=== PATIENT | male | born 1985 | race American Indian/Alaskan Native ===

== ENCOUNTER 2017-07-01 09:47 | Emergency (ER) | payer SELFPAY ==
[2017-07-01] MEDS ORDERED: TRIPLE ANTIBIOTIC TP ONE (16:38)
--- NOTE | 2017-07-01 16:53 | Emergency Department Report ---
- General Chief complaint: Skin/Abscess/Foreign Body Stated complaint: INFECTED WOUND ON FACE Source: patient Mode of arrival: Ambulatory Limitations: No Limitations - History of Present Illness Initial comments: 32 y/o M presents with a small open wound noted on the right side of the face near the masseter that developed about 1.5 weeks ago. Pt states that he has a hx of staph infections and was diagnosed in 2014 at [facility]. Pt states that since then he has gotten such infection yearly. He states that bactrim usually resolves the issue. Pt states that he has noticed mild oozing and pus at the site yesterday. Pt reports to mild pain at the site. He has been apply neosporin to the site with no improvement of the symptoms. Pt denies any fever , chills, chest pain, SOB at this time. NKDA. ALCAZAR complaint: lesion (small earser sized open wound) -: week(s) (1.5 weeks) Tetanus Up to Date: yes Location: face Severity: moderate Severity scale (0 -10): 4 Quality: other (tingling) Consistency: constant Improves with: none - Related Data Previous Rx's Medication Instructions Recorded Last Taken Type Ibuprofen [Motrin] 600 mg PO Q8H PRN #15 tablet 04/05/16 Unknown Rx Sulfamethoxazole/Trimethoprim 1 each PO BID #20 tablet 05/22/16 Unknown Rx [Bactrim DS TAB] Ibuprofen [Motrin 600 MG tab] 600 mg PO Q8H PRN #12 tablet 07/01/17 Unknown Rx Mupirocin [Bactroban 2%] 1 applic TP TID #1 tube 07/01/17 Unknown Rx Sulfamethoxazole/Trimethoprim 1 each PO BID #20 tablet 07/01/17 Unknown Rx [Bactrim DS TAB] Allergies Allergy/AdvReac Type Severity Reaction Status Date / Time No Known Allergies Allergy Verified 07/01/17 10:02 Abscess Boil HPI - HPI Chief Complaint: Skin/Abscess/Foreign Body Stated Complaint: INFECTED WOUND ON FACE Location: Other (face) Severity: Moderate History: Yes Pain, Yes Purulent Drainage, Yes Previous History, No Fever, No Numbness, No Foreign Body, No Insect Bite Home Medications: Previous Rx's Medication Instructions Recorded Last Taken Type Ibuprofen [Motrin] 600 mg PO Q8H PRN #15 tablet 04/05/16 Unknown Rx Sulfamethoxazole/Trimethoprim 1 each PO BID #20 tablet 05/22/16 Unknown Rx [Bactrim DS TAB] Ibuprofen [Motrin 600 MG tab] 600 mg PO Q8H PRN #12 tablet 07/01/17 Unknown Rx Mupirocin [Bactroban 2%] 1 applic TP TID #1 tube 07/01/17 Unknown Rx Sulfamethoxazole/Trimethoprim 1 each PO BID #20 tablet 07/01/17 Unknown Rx [Bactrim DS TAB] Allergies/Adverse Reactions: Allergies Allergy/AdvReac Type Severity Reaction Status Date / Time No Known Allergies Allergy Verified 07/01/17 10:02 ED Review of Systems ROS: Stated complaint: INFECTED WOUND ON FACE Other details as noted in HPI Constitutional: denies: chills, fever Eyes: denies: eye pain, eye discharge, vision change ENT: denies: ear pain, throat pain Respiratory: denies: cough, shortness of breath, wheezing Cardiovascular: denies: chest pain, palpitations Gastrointestinal: denies: abdominal pain, nausea, diarrhea Genitourinary: denies: urgency, dysuria Musculoskeletal: denies: back pain, joint swelling, arthralgia Skin: lesions (with mild pus and drainage per patient) Neurological: denies: headache, weakness, paresthesias Psychiatric: denies: anxiety, depression ED Past Medical Hx - Past Medical History Previous Medical History?: No - Surgical History Past Surgical History?: No - Social History Smoking Status: Current Every Day Smoker Substance Use Type: None - Medications Home Medications: Home Medications Medication Instructions Recorded Confirmed Last Taken Type Ibuprofen [Motrin] 600 mg PO Q8H PRN #15 tablet 04/05/16 Unknown Rx Sulfamethoxazole/Trimethoprim 1 each PO BID #20 tablet 05/22/16 Unknown Rx [Bactrim DS TAB] Ibuprofen [Motrin 600 MG tab] 600 mg PO Q8H PRN #12 tablet 07/01/17 Unknown Rx Mupirocin [Bactroban 2%] 1 applic TP TID #1 tube 07/01/17 Unknown Rx Sulfamethoxazole/Trimethoprim 1 each PO BID #20 tablet 07/01/17 Unknown Rx [Bactrim DS TAB] ED Physical Exam - General Limitations: No Limitations General appearance: alert, in no apparent distress - Head Head exam: Present: atraumatic, normocephalic - Eye Eye exam: Present: normal appearance - ENT ENT exam: Present: mucous membranes moist - Neck Neck exam: Present: normal inspection - Respiratory Respiratory exam: Present: normal lung sounds bilaterally. Absent: respiratory distress - Cardiovascular Cardiovascular Exam: Present: regular rate, normal rhythm. Absent: systolic murmur, diastolic murmur, rubs, gallop - Neurological Exam Neurological exam: Present: alert, oriented X3 - Psychiatric Psychiatric exam: Present: normal affect, normal mood - Skin Skin exam: Present: other (there was a small size of a pencil eraser open lesion noted on the right side of the face near the masseter, there was no oozing pus or drianage noted at the site, no redness or swelling noted) ED Course Vital Signs 07/01/17 07/01/17 09:58 17:03 Temperature 98.1 F Pulse Rate 74 68 Respiratory 16 16 Rate Blood Pressure 101/57 Blood Pressure 127/80 [Right] O2 Sat by Pulse 99 100 Oximetry ED Medical Decision Making - Medical Decision Making Pt has a hx of staph infection per patient, he states that he was first dx at [facility] in 2014. I have recommended a wound culture in the ED at this time, pt has refused due to financial reasons. Therefore, we cleaned the area and applied triple antibiotic to the site, along with a bandaid. Pt was discharged with Bactrim, Bactroban, and Ibuprofen. He was given referals to a shoe fitter, ID, and PCP. Encouraged to follow-up with them for continued infections of the same sort. Pt was discharged in stable condition, alert and oriented, and in no respiratory distress. Critical care attestation.: If time is entered above; I have spent that time in minutes in the direct care of this critically ill patient, excluding procedure time. ED Disposition Clinical Impression: Open wound Open wound of face Qualifiers: Encounter type: initial encounter Qualified Code(s): S01.80XA - Unspecified open wound of other part of head, initial encounter Disposition: TO HOME OR SELFCARE Is pt being admited?: No Does the pt Need Aspirin: No Condition: Stable Instructions: Sulfamethoxazole/Trimethoprim (By mouth), Ibuprofen (By mouth), Wound Infection (ED) Additional Instructions: Please take the antibiotic exactly how it has been directed . Please take the Ibuprofen as needed for the pain. I encouraged you to follow-up with Infectious disease or Dermatology for recurrent sores of this type. Referrals provided for you today. Please follow-up with PCP with 3-5 days. Clean the area 3 times a day with mild soap and water and apply the antibiotic ointment to the sore. Please return to the ER immediately with any acute worsening of your symptoms- such as fever, chills, oozing, pus, redness, swelling, or drainage at the site. Prescriptions: Ibuprofen [Motrin 600 MG tab] 600 mg PO Q8H PRN #12 tablet PRN Reason: Pain Mupirocin [Bactroban 2%] 1 applic TP TID #1 tube Sulfamethoxazole/Trimethoprim [Bactrim DS TAB] 1 each PO BID #20 tablet Referrals: [facility] [Outside] - 3-5 Days REBECCA BERNAL MD [Staff Physician] - 3-5 Days PRIMARY CAREMD [Primary Care Provider] - 3-5 Days JOAQUIN STAUFFER MD [Staff Physician] - 3-5 Days Forms: Work/School Release Form(ED)
[2017-07-01 17:04] VITALS: BP 127/80
== END 2017-07-01 17:03 | disposition home or self-care (01) ==
LOC: ED 09:47
DX: S01.80XA Unspecified open wound of other part of head, initial encounter (principal); F17.210 Nicotine dependence, cigarettes, uncomplicated; X58.XXXA Exposure to other specified factors, initial encounter; Y93.89 Activity, other specified; Y92.89 Other specified places as the place of occurrence of the external cause; Y99.8 Other external cause status
CPT/HCPCS: 99282; A6250

== ENCOUNTER 2017-11-08 14:23 | Emergency (ER) | payer SELFPAY ==
[2017-11-08 15:47] VITALS: BP 104/55
[2017-11-08] MEDS ORDERED: BOOSTRIX IM ONE (18:15)
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
== END 2017-11-08 18:25 | disposition home or self-care (01) ==
LOC: ED 14:23
DX: S01.451A Open bite of right cheek and temporomandibular area, initial encounter (principal); S61.256A Open bite of right little finger without damage to nail, initial encounter; F17.200 Nicotine dependence, unspecified, uncomplicated; F12.10 Cannabis abuse, uncomplicated; W50.3XXA Accidental bite by another person, initial encounter; Y93.89 Activity, other specified; Y92.89 Other specified places as the place of occurrence of the external cause; Y99.8 Other external cause status
CPT/HCPCS: 90471; 90715; 99282

== ENCOUNTER 2020-05-29 07:43 | Emergency (ER) | payer SELFPAY ==
[2020-05-29 07:49] VITALS: BP 120/72
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
== END 2020-05-29 09:11 | disposition home or self-care (01) ==
LOC: ED 07:43
DX: T14.8XXA Other injury of unspecified body region, initial encounter (principal); F17.200 Nicotine dependence, unspecified, uncomplicated; F12.90 Cannabis use, unspecified, uncomplicated; Z79.899 Other long term (current) drug therapy; Z98.890 Other specified postprocedural states; Y92.89 Other specified places as the place of occurrence of the external cause; Y83.8 Other surgical procedures as the cause of abnormal reaction of the patient, or of later complication, without mention of misadventure at the time of the procedure
CPT/HCPCS: 99282

== ENCOUNTER 2020-12-18 11:13 | Emergency (ER) | payer SELFPAY ==
--- NOTE | 2020-12-18 12:06 | Emergency Department Report ---
ED General Adult HPI - General Stated complaint: RT WRIST WOUND/L HAND WOUND Time Seen by Provider: 12/18/20 12:05 - History of Present Illness Initial comments: 35-year-old -[place] male patient presents with complaints of painful sore to right forearm and left hand. He states the lesion on his right forearm has been present for about 1 month and is suddenly worsening over the past few days. The lesions on his left hand have been present for about 2 weeks. Patient reports history of recurrent sores on his arms bilaterally for years. He states he has been following with his PCP for evaluation of the sores, however they are unsure of the causation. He denies any fever/chills/sweats or bony pain. No other past medical history per patient. - Related Data Previous Rx's Medication Instructions Recorded Last Taken Type Ibuprofen [Motrin] 600 mg PO Q8H PRN #15 tablet 04/05/16 Unknown Rx Sulfamethoxazole/Trimethoprim 1 each PO BID #20 tablet 05/22/16 Unknown Rx [Bactrim DS TAB] Ibuprofen [Motrin 600 MG tab] 600 mg PO Q8H PRN #12 tablet 07/01/17 Unknown Rx Mupirocin [Bactroban 2%] 1 applic TP TID #1 tube 07/01/17 Unknown Rx Sulfamethoxazole/Trimethoprim 1 each PO BID #20 tablet 07/01/17 Unknown Rx [Bactrim DS TAB] Amoxicillin/K Clav Tab [Augmentin 1 tab PO Q12HR #20 tab 11/08/17 Unknown Rx 875 mg] Ibuprofen [Motrin] 600 mg PO Q8H PRN #30 tablet 11/08/17 Unknown Rx Chlorhexidine Gluconate [Hibiclens] 10 ml TP BID #240 liquid 05/29/20 Unknown Rx Ketorolac [Toradol] 10 mg PO Q6H PRN #15 tablet 05/29/20 Unknown Rx Mupirocin [Bactroban 2%] 15 applic TP TID #15 gm 05/29/20 Unknown Rx Sulfamethoxazole/Trimethoprim 1 each PO BID #20 tablet 05/29/20 Unknown Rx [Bactrim Ds] Clindamycin [Clindamycin CAP] 300 mg PO Q6H 10 Days #40 capsule 12/18/20 Unknown Rx Ibuprofen [Motrin 800 MG tab] 800 mg PO Q8HR PRN #20 tablet 12/18/20 Unknown Rx Mupirocin [Bactroban 2% OINT] 1 applic TP TID 10 Days #1 tube 12/18/20 Unknown Rx Allergies Allergy/AdvReac Type Severity Reaction Status Date / Time No Known Allergies Allergy Verified 12/18/20 12:02 ED Review of Systems ROS: Stated complaint: RT WRIST WOUND/L HAND WOUND Other details as noted in HPI Constitutional: denies: chills, fever, malaise Musculoskeletal: denies: joint swelling, arthralgia Skin: rash, lesions, change in color Neurological: denies: numbness, paresthesias ED Past Medical Hx - Surgical History Additional Surgical History: Oral surgery - Social History Smoking Status: Current Every Day Smoker Substance Use Type: Alcohol, Marijuana - Medications Home Medications: Home Medications Medication Instructions Recorded Confirmed Last Taken Type Ibuprofen [Motrin] 600 mg PO Q8H PRN #15 tablet 04/05/16 Unknown Rx Sulfamethoxazole/Trimethoprim 1 each PO BID #20 tablet 05/22/16 Unknown Rx [Bactrim DS TAB] Ibuprofen [Motrin 600 MG tab] 600 mg PO Q8H PRN #12 tablet 07/01/17 Unknown Rx Mupirocin [Bactroban 2%] 1 applic TP TID #1 tube 07/01/17 Unknown Rx Sulfamethoxazole/Trimethoprim 1 each PO BID #20 tablet 07/01/17 Unknown Rx [Bactrim DS TAB] Amoxicillin/K Clav Tab [Augmentin 1 tab PO Q12HR #20 tab 11/08/17 Unknown Rx 875 mg] Ibuprofen [Motrin] 600 mg PO Q8H PRN #30 tablet 11/08/17 Unknown Rx Chlorhexidine Gluconate [Hibiclens] 10 ml TP BID #240 liquid 05/29/20 Unknown Rx Ketorolac [Toradol] 10 mg PO Q6H PRN #15 tablet 05/29/20 Unknown Rx Mupirocin [Bactroban 2%] 15 applic TP TID #15 gm 05/29/20 Unknown Rx Sulfamethoxazole/Trimethoprim 1 each PO BID #20 tablet 05/29/20 Unknown Rx [Bactrim Ds] Clindamycin [Clindamycin CAP] 300 mg PO Q6H 10 Days #40 capsule 12/18/20 Unknown Rx Ibuprofen [Motrin 800 MG tab] 800 mg PO Q8HR PRN #20 tablet 12/18/20 Unknown Rx Mupirocin [Bactroban 2% OINT] 1 applic TP TID 10 Days #1 tube 12/18/20 Unknown Rx ED Physical Exam - General General appearance: alert, in no apparent distress - Head Head exam: Present: atraumatic, normocephalic - Eye Eye exam: Present: normal appearance. Absent: scleral icterus - Respiratory Respiratory exam: Absent: respiratory distress - Cardiovascular Cardiovascular Exam: Present: regular rate - Neurological Exam Neurological exam: Present: normal gait - Psychiatric Psychiatric exam: Present: normal affect, normal mood - Skin Skin exam: Present: warm, dry, normal color, other (There is a approximately 3 cm round superficial ulceration noted to right forearm with surrounding erythema and tenderness to palpation; no active drainage noted; 2 small less than 1 cm round superficial ulcerations noted to the left dorsal palm without active drainage or surrounding erythema) ED Course Vital Signs 12/18/20 12:05 Temperature 98.0 F Pulse Rate 78 Respiratory 20 Rate Blood Pressure 97/58 O2 Sat by Pulse 99 Oximetry ED Medical Decision Making - Radiology Data Radiology results: report reviewed RIGHT FOREARM 3 VIEWS INDICATION: infection, r/o osteomyelitis. COMPARISON: No relevant prior imaging study available. FINDINGS: There is no significant skeletal abnormality. No soft tissue gas or foreign bodies. IMPRESSION: 1. No acute findings. - Medical Decision Making 35-year-old -[place] male patient presents with complaints of painful sore to right forearm and left hand. He states the lesion on his right forearm has been present for about 1 month and is suddenly worsening over the past few days. The lesions on his left hand have been present for about 2 weeks. Patient reports history of recurrent sores on his arms bilaterally for years. He states he has been following with his PCP for evaluation of the sores, however they are unsure of the causation. He denies any fever/chills/sweats or bony pain. No other past medical history per patient. Right forearm ulceration appears to be infected. X-rays negative for any osteomyelitis. Will treat with clindamycin and mupirocin. Recommend follow-up primary care provider for further evaluation in 2 days. His vitals are normal, he is well-appearing, he is stable for discharge home. Strict return precautions were discussed in detail with patient who verbalized understanding. Critical care attestation.: If time is entered above; I have spent that time in minutes in the direct care of this critically ill patient, excluding procedure time. ED Disposition Clinical Impression: Infected wound Disposition: DC-01 TO HOME OR SELFCARE Is pt being admited?: No Condition: Stable Instructions: Cellulitis, Adult Prescriptions: Mupirocin [Bactroban 2% OINT] 1 applic TP TID 10 Days #1 tube Clindamycin [Clindamycin CAP] 300 mg PO Q6H 10 Days #40 capsule Ibuprofen [Motrin 800 MG tab] 800 mg PO Q8HR PRN #20 tablet PRN Reason: pain
[2020-12-18 12:07] VITALS: BP 97/58
--- NOTE | 2020-12-18 13:05 | XRay Report ---
RIGHT FOREARM 3 VIEWS INDICATION: infection, r/o osteomyelitis. COMPARISON: No relevant prior imaging study available. FINDINGS: There is no significant skeletal abnormality. No soft tissue gas or foreign bodies. IMPRESSION: 1. No acute findings. Signer Name: Mihir Lin MD Signed: 12/18/2020 1:01 PM Workstation Name: [id number]
== END 2020-12-18 13:44 | disposition home or self-care (01) ==
LOC: ED 11:13
DX: T14.8XXA Other injury of unspecified body region, initial encounter (principal); F17.200 Nicotine dependence, unspecified, uncomplicated; F12.90 Cannabis use, unspecified, uncomplicated; Z79.899 Other long term (current) drug therapy; X58.XXXA Exposure to other specified factors, initial encounter

== ENCOUNTER 2021-12-13 12:53 | Emergency (ER) | payer SELFPAY ==
[2021-12-13 13:25] VITALS: BP 113/67
--- NOTE | 2021-12-13 14:11 | Emergency Department Report ---
- General Chief complaint: Skin/Abscess/Foreign Body Stated complaint: LIP INJURY Time Seen by Provider: 12/13/21 14:01 Source: patient Mode of arrival: Ambulatory Limitations: No Limitations - History of Present Illness Initial comments: 36-year-old black male with no past medical history presents to the emergency department for evaluation of abscess to left lip. He states that he cut his lip a few days ago while he was attempting to trim his ames, and since then, he has had increasing redness pain and noted purulent drainage from area yesterday. He denies fever. MD complaint: abscess/boil -: Gradual, days(s) (3-4) Location: face (Left lip) Severity scale (0 -10): 3 Quality: aching Consistency: constant Context: other Associated symptoms: denies other symptoms Treatments Prior to Arrival: none - Related Data Previous Rx's Medication Instructions Recorded Last Taken Type Ibuprofen [Motrin] 600 mg PO Q8H PRN #15 tablet 04/05/16 Unknown Rx Sulfamethoxazole/Trimethoprim 1 each PO BID #20 tablet 05/22/16 Unknown Rx [Bactrim DS TAB] Ibuprofen [Motrin 600 MG tab] 600 mg PO Q8H PRN #12 tablet 07/01/17 Unknown Rx Mupirocin [Bactroban 2%] 1 applic TP TID #1 tube 07/01/17 Unknown Rx Sulfamethoxazole/Trimethoprim 1 each PO BID #20 tablet 07/01/17 Unknown Rx [Bactrim DS TAB] Amoxicillin/K Clav Tab [Augmentin 1 tab PO Q12HR #20 tab 11/08/17 Unknown Rx 875 mg] Ibuprofen [Motrin] 600 mg PO Q8H PRN #30 tablet 11/08/17 Unknown Rx Chlorhexidine Gluconate [Hibiclens] 10 ml TP BID #240 liquid 05/29/20 Unknown Rx Ketorolac [Toradol] 10 mg PO Q6H PRN #15 tablet 05/29/20 Unknown Rx Mupirocin [Bactroban 2%] 15 applic TP TID #15 gm 05/29/20 Unknown Rx Sulfamethoxazole/Trimethoprim 1 each PO BID #20 tablet 05/29/20 Unknown Rx [Bactrim Ds] Clindamycin [Clindamycin CAP] 300 mg PO Q6H 10 Days #40 capsule 12/18/20 Unknown Rx Ibuprofen [Motrin 800 MG tab] 800 mg PO Q8HR PRN #20 tablet 12/18/20 Unknown Rx Mupirocin [Bactroban 2% OINT] 1 applic TP TID 10 Days #1 tube 12/18/20 Unknown Rx Sulfamethoxazole/Trimethoprim 1 each PO BID #14 tab 12/13/21 Unknown Rx [Bactrim DS TAB] Allergies Allergy/AdvReac Type Severity Reaction Status Date / Time No Known Allergies Allergy Verified 12/18/20 12:02 Abscess Boil HPI - HPI Chief Complaint: Skin/Abscess/Foreign Body Stated Complaint: LIP INJURY Time Seen by Provider: 12/13/21 14:01 Home Medications: Previous Rx's Medication Instructions Recorded Last Taken Type Ibuprofen [Motrin] 600 mg PO Q8H PRN #15 tablet 04/05/16 Unknown Rx Sulfamethoxazole/Trimethoprim 1 each PO BID #20 tablet 05/22/16 Unknown Rx [Bactrim DS TAB] Ibuprofen [Motrin 600 MG tab] 600 mg PO Q8H PRN #12 tablet 07/01/17 Unknown Rx Mupirocin [Bactroban 2%] 1 applic TP TID #1 tube 07/01/17 Unknown Rx Sulfamethoxazole/Trimethoprim 1 each PO BID #20 tablet 07/01/17 Unknown Rx [Bactrim DS TAB] Amoxicillin/K Clav Tab [Augmentin 1 tab PO Q12HR #20 tab 11/08/17 Unknown Rx 875 mg] Ibuprofen [Motrin] 600 mg PO Q8H PRN #30 tablet 11/08/17 Unknown Rx Chlorhexidine Gluconate [Hibiclens] 10 ml TP BID #240 liquid 05/29/20 Unknown Rx Ketorolac [Toradol] 10 mg PO Q6H PRN #15 tablet 05/29/20 Unknown Rx Mupirocin [Bactroban 2%] 15 applic TP TID #15 gm 05/29/20 Unknown Rx Sulfamethoxazole/Trimethoprim 1 each PO BID #20 tablet 05/29/20 Unknown Rx [Bactrim Ds] Clindamycin [Clindamycin CAP] 300 mg PO Q6H 10 Days #40 capsule 12/18/20 Unknown Rx Ibuprofen [Motrin 800 MG tab] 800 mg PO Q8HR PRN #20 tablet 12/18/20 Unknown Rx Mupirocin [Bactroban 2% OINT] 1 applic TP TID 10 Days #1 tube 12/18/20 Unknown Rx Sulfamethoxazole/Trimethoprim 1 each PO BID #14 tab 12/13/21 Unknown Rx [Bactrim DS TAB] Allergies/Adverse Reactions: Allergies Allergy/AdvReac Type Severity Reaction Status Date / Time No Known Allergies Allergy Verified 12/18/20 12:02 ED Review of Systems ROS: Stated complaint: LIP INJURY Other details as noted in HPI Comment: All other systems reviewed and negative Constitutional: denies: chills, fever Eyes: denies: eye pain, eye discharge ENT: denies: ear pain, throat pain, dental pain, hearing loss Respiratory: denies: cough, shortness of breath, SOB with exertion, SOB at rest Cardiovascular: denies: chest pain, palpitations, dyspnea on exertion, orthopnea, edema, syncope, paroxysmal nocturnal dyspnea Endocrine: no symptoms reported Gastrointestinal: denies: abdominal pain, nausea, vomiting, diarrhea, hematemesis, melena Genitourinary: denies: urgency, dysuria Musculoskeletal: denies: back pain Skin: other (Abscess left upper lip). denies: rash, lesions Neurological: denies: headache, weakness, numbness, paresthesias Psychiatric: denies: anxiety, depression Hematological/Lymphatic: denies: easy bleeding, easy bruising ED Past Medical Hx - Surgical History Additional Surgical History: Oral surgery - Social History Smoking Status: Current Every Day Smoker Substance Use Type: Alcohol, Marijuana - Medications Home Medications: Home Medications Medication Instructions Recorded Confirmed Last Taken Type Ibuprofen [Motrin] 600 mg PO Q8H PRN #15 tablet 04/05/16 Unknown Rx Sulfamethoxazole/Trimethoprim 1 each PO BID #20 tablet 05/22/16 Unknown Rx [Bactrim DS TAB] Ibuprofen [Motrin 600 MG tab] 600 mg PO Q8H PRN #12 tablet 07/01/17 Unknown Rx Mupirocin [Bactroban 2%] 1 applic TP TID #1 tube 07/01/17 Unknown Rx Sulfamethoxazole/Trimethoprim 1 each PO BID #20 tablet 07/01/17 Unknown Rx [Bactrim DS TAB] Amoxicillin/K Clav Tab [Augmentin 1 tab PO Q12HR #20 tab 11/08/17 Unknown Rx 875 mg] Ibuprofen [Motrin] 600 mg PO Q8H PRN #30 tablet 11/08/17 Unknown Rx Chlorhexidine Gluconate [Hibiclens] 10 ml TP BID #240 liquid 05/29/20 Unknown Rx Ketorolac [Toradol] 10 mg PO Q6H PRN #15 tablet 05/29/20 Unknown Rx Mupirocin [Bactroban 2%] 15 applic TP TID #15 gm 05/29/20 Unknown Rx Sulfamethoxazole/Trimethoprim 1 each PO BID #20 tablet 05/29/20 Unknown Rx [Bactrim Ds] Clindamycin [Clindamycin CAP] 300 mg PO Q6H 10 Days #40 capsule 12/18/20 Unknown Rx Ibuprofen [Motrin 800 MG tab] 800 mg PO Q8HR PRN #20 tablet 12/18/20 Unknown Rx Mupirocin [Bactroban 2% OINT] 1 applic TP TID 10 Days #1 tube 12/18/20 Unknown Rx Sulfamethoxazole/Trimethoprim 1 each PO BID #14 tab 12/13/21 Unknown Rx [Bactrim DS TAB] ED Physical Exam - General Limitations: No Limitations General appearance: alert, in no apparent distress - Head Head exam: Present: atraumatic, normocephalic - Expanded Head Exam Expanded 1 - Abscess 2 cm in diameter noted. Noted to have erythema edema and tenderness to touch. No drainage noted. Patient states that he expressed purulent drainage from area just prior to arrival. - Eye Eye exam: Present: normal appearance. Absent: conjunctival injection - Neck Neck exam: Present: normal inspection. Absent: tenderness, lymphadenopathy - Respiratory Respiratory exam: Absent: respiratory distress - Cardiovascular Cardiovascular Exam: Present: regular rate - GI/Abdominal GI/Abdominal exam: Absent: distended - Back Exam Back exam: Present: normal inspection - Neurological Exam Neurological exam: Present: alert, oriented X3 - Psychiatric Psychiatric exam: Present: normal affect, normal mood - Skin Skin exam: Present: warm, dry, intact, normal color ED Course Vital Signs 12/13/21 13:24 Temperature 97.9 F Pulse Rate 89 Respiratory 18 Rate Blood Pressure 113/67 O2 Sat by Pulse 100 Oximetry ED Medical Decision Making - Medical Decision Making 36-year-old black male with no past medical history presents to the emergency department for evaluation of abscess to left lip. He states that he cut his lip a few days ago while he was attempting to trim his ames, and since then, he has had increasing redness pain and noted purulent drainage from area yesterday. He denies fever. Abscess not fluctuant, and patient will be treated with one week coarse of Bactrim. He was advised to follow up with pcp if no improvement or worsening symptoms. He was advised to return to ed if he develops fever or worsening abscess. Critical care attestation.: If time is entered above; I have spent that time in minutes in the direct care of this critically ill patient, excluding procedure time. ED Disposition Clinical Impression: Abscess of lip Disposition: 01 HOME / SELF CARE / HOMELESS Is pt being admited?: No Does the pt Need Aspirin: No Condition: Stable Instructions: Skin Abscess, [id number] Additional Instructions: Take medications as prescribed follow-up with primary care provider. Prescriptions: Sulfamethoxazole/Trimethoprim [Bactrim DS TAB] 1 each PO BID #14 tab Referrals: CED STERLING MD [Primary Care Provider] - 3-5 Days Time of Disposition: 14:12
== END 2021-12-13 14:39 | disposition home or self-care (01) ==
LOC: ED 12:53
DX: K13.0 Diseases of lips (principal); F17.200 Nicotine dependence, unspecified, uncomplicated; F12.90 Cannabis use, unspecified, uncomplicated; Z72.89 Other problems related to lifestyle; Z79.899 Other long term (current) drug therapy
CPT/HCPCS: 99282

== ENCOUNTER 2022-02-17 19:01 | Emergency (ER) | payer SELFPAY ==
[2022-02-18] MEDS ORDERED: IBUPROFEN 600 MG TAB PO ONE (00:51)
[2022-02-18] MEDS ORDERED: SULFAMETHOXAZOLE/TRIMETHOPRIM 800/160MG DS TAB PO ONE (00:51)
--- NOTE | 2022-02-18 01:03 | Emergency Department Report ---
ED General Adult HPI - General Chief complaint: Wound/Laceration Stated complaint: INFECTED WOUND Source: patient Mode of arrival: Ambulatory Limitations: No Limitations - History of Present Illness Initial comments: Patient is a 36-year-old -[place] male with no past medical history presents to the ED with complaint of persistent ulcerated open sores with mild erythematous rashes on the left arm for the last 3 weeks, worse in the last 2 days. Patient states that the open sores are ulcerated, painful and occasionally drain purulent discharge. Patient states that this symptoms have been recurrent for the last 8 months and he has previously taken antibiotics which helped resolve them. Patient denies dizziness, syncope, chest pain or shortness of breath, fever, chills, nausea and vomiting, traumatic injury, numbness and tingling or weakness of left arm. MD Complaint: Mild erythematous maculopapular rashes on left arm diffusely with open sore -: Sudden, week(s) (2) Location: upper extremity (Left arm) Radiation: non-radiation Severity scale (0 -10): 6 Quality: aching, sharp Consistency: constant Improves with: none Worsens with: none Associated Symptoms: denies other symptoms, rash (Mild erythematous maculopapular rashes with open sores on left arm). denies: confusion, chest pain, cough, diaphoresis, fever/chills, headaches, malaise, nausea/vomiting, seizure, shortness of breath, syncope Treatments Prior to Arrival: none - Related Data Previous Rx's Medication Instructions Recorded Last Taken Type Ibuprofen [Motrin] 600 mg PO Q8H PRN #15 tablet 04/05/16 Unknown Rx Ibuprofen [Motrin 600 MG tab] 600 mg PO Q8H PRN #12 tablet 07/01/17 Unknown Rx Sulfamethoxazole/Trimethoprim 1 each PO BID #20 tablet 07/01/17 Unknown Rx [Bactrim DS TAB] Amoxicillin/K Clav Tab [Augmentin 1 tab PO Q12HR #20 tab 11/08/17 Unknown Rx 875 mg] Ibuprofen [Motrin] 600 mg PO Q8H PRN #30 tablet 11/08/17 Unknown Rx Ketorolac [Toradol] 10 mg PO Q6H PRN #15 tablet 05/29/20 Unknown Rx Mupirocin [Bactroban 2%] 15 applic TP TID #15 gm 05/29/20 Unknown Rx Sulfamethoxazole/Trimethoprim 1 each PO BID #20 tablet 05/29/20 Unknown Rx [Bactrim Ds] Clindamycin [Clindamycin CAP] 300 mg PO Q6H 10 Days #40 capsule 12/18/20 Unknown Rx Mupirocin [Bactroban 2% OINT] 1 applic TP TID 10 Days #1 tube 12/18/20 Unknown Rx Sulfamethoxazole/Trimethoprim 1 each PO BID #14 tab 12/13/21 Unknown Rx [Bactrim DS TAB] Chlorhexidine Gluconate [Hibiclens] 10 ml TP BID #240 liquid 02/18/22 Unknown Rx Ibuprofen [Motrin 800 MG tab] 800 mg PO Q8HR PRN #20 tablet 02/18/22 Unknown Rx Mupirocin [Bactroban 2% OINT] 1 applic TP TID #1 tube 02/18/22 Unknown Rx Sulfamethoxazole/Trimethoprim 1 each PO BID #20 tablet 02/18/22 Unknown Rx [Bactrim DS TAB] Allergies Allergy/AdvReac Type Severity Reaction Status Date / Time No Known Allergies Allergy Verified 02/17/22 20:33 ED Review of Systems ROS: Stated complaint: INFECTED WOUND Other details as noted in HPI Constitutional: denies: chills, fever Eyes: denies: eye pain, eye discharge, vision change ENT: denies: ear pain, throat pain Respiratory: denies: cough, shortness of breath, wheezing Cardiovascular: denies: chest pain, palpitations Endocrine: no symptoms reported Gastrointestinal: denies: abdominal pain, nausea, diarrhea Genitourinary: denies: urgency, dysuria Musculoskeletal: denies: back pain, joint swelling, arthralgia Skin: rash (Mild erythematous maculopapular rashes with open sores on the left arm), change in color. denies: lesions, pruritus Neurological: denies: headache, weakness, paresthesias Psychiatric: denies: anxiety, depression Hematological/Lymphatic: denies: easy bleeding, easy bruising ED Past Medical Hx - Past Medical History Previous Medical History?: No - Surgical History Past Surgical History?: Yes Additional Surgical History: Oral surgery - Social History Smoking Status: Current Every Day Smoker Substance Use Type: None - Medications Home Medications: Home Medications Medication Instructions Recorded Confirmed Last Taken Type Ibuprofen [Motrin] 600 mg PO Q8H PRN #15 tablet 04/05/16 Unknown Rx Ibuprofen [Motrin 600 MG tab] 600 mg PO Q8H PRN #12 tablet 07/01/17 Unknown Rx Sulfamethoxazole/Trimethoprim 1 each PO BID #20 tablet 07/01/17 Unknown Rx [Bactrim DS TAB] Amoxicillin/K Clav Tab [Augmentin 1 tab PO Q12HR #20 tab 11/08/17 Unknown Rx 875 mg] Ibuprofen [Motrin] 600 mg PO Q8H PRN #30 tablet 11/08/17 Unknown Rx Ketorolac [Toradol] 10 mg PO Q6H PRN #15 tablet 05/29/20 Unknown Rx Mupirocin [Bactroban 2%] 15 applic TP TID #15 gm 05/29/20 Unknown Rx Sulfamethoxazole/Trimethoprim 1 each PO BID #20 tablet 05/29/20 Unknown Rx [Bactrim Ds] Clindamycin [Clindamycin CAP] 300 mg PO Q6H 10 Days #40 capsule 12/18/20 Unknown Rx Mupirocin [Bactroban 2% OINT] 1 applic TP TID 10 Days #1 tube 12/18/20 Unknown Rx Sulfamethoxazole/Trimethoprim 1 each PO BID #14 tab 12/13/21 Unknown Rx [Bactrim DS TAB] Chlorhexidine Gluconate [Hibiclens] 10 ml TP BID #240 liquid 02/18/22 Unknown Rx Ibuprofen [Motrin 800 MG tab] 800 mg PO Q8HR PRN #20 tablet 02/18/22 Unknown Rx Mupirocin [Bactroban 2% OINT] 1 applic TP TID #1 tube 02/18/22 Unknown Rx Sulfamethoxazole/Trimethoprim 1 each PO BID #20 tablet 02/18/22 Unknown Rx [Bactrim DS TAB] ED Physical Exam - General Limitations: No Limitations General appearance: alert, in no apparent distress - Head Head exam: Present: atraumatic, normocephalic, normal inspection - Eye Eye exam: Present: normal appearance, PERRL, EOMI Pupils: Present: normal accommodation - ENT ENT exam: Present: normal exam, normal orophraynx, mucous membranes moist, TM's normal bilaterally, normal external ear exam - Neck Neck exam: Present: normal inspection, full ROM. Absent: tenderness - Respiratory Respiratory exam: Present: normal lung sounds bilaterally. Absent: respiratory distress, wheezes, rales, rhonchi, chest wall tenderness, accessory muscle use, decreased breath sounds, prolonged expiratory - Cardiovascular Cardiovascular Exam: Present: regular rate, normal rhythm, normal heart sounds. Absent: systolic murmur, diastolic murmur, rubs, gallop - GI/Abdominal GI/Abdominal exam: Present: soft, normal bowel sounds. Absent: tenderness, guarding, rebound, hyperactive bowel sounds, hypoactive bowel sounds, organomegaly - Extremities Exam Extremities exam: Present: normal inspection, full ROM, normal capillary refill. Absent: tenderness - Back Exam Back exam: Present: normal inspection, full ROM. Absent: tenderness, CVA tenderness (R), CVA tenderness (L), muscle spasm, paraspinal tenderness, vertebral tenderness - Neurological Exam Neurological exam: Present: alert, oriented X3, CN II-XII intact, normal gait, reflexes normal - Psychiatric Psychiatric exam: Present: normal affect, normal mood - Skin Skin exam: Present: warm, dry, intact, rash (Mild erythematous maculopapular rashes with open sores on the left arm diffusely with. Discharge), erythema. Absent: normal color ED Course Vital Signs 02/17/22 20:30 Temperature 98.6 F Pulse Rate 92 H Respiratory 20 Rate Blood Pressure 123/65 O2 Sat by Pulse 98 Oximetry ED Medical Decision Making - Medical Decision Making This is a 36-year-old -[place] male with no past medical history presents to the ED with complaint of persistent ulcerated open sores with mild erythematous rashes on the left arm for the last 3 weeks, worse in the last 2 days. Patient states that the open sores are ulcerated, painful and occasionally drain purulent discharge. Patient states that this symptoms have been recurrent for the last 8 months and he has previously taken antibiotics which helped resolve them. In the ED, patient is alert and oriented x3 and is not in any distress. Patient was treated in the ED empirically with antibiotics and pain medications and discharged home on antibiotics and advised to follow-up with his primary care physician in 7 to 10 days for reevaluation or return to the ED immediately if symptoms get worse. - Differential Diagnosis Cellulitis; folliculitis; cutaneous abscess Critical care attestation.: If time is entered above; I have spent that time in minutes in the direct care of this critically ill patient, excluding procedure time. ED Disposition Clinical Impression: Cellulitis of left upper extremity, Chronic folliculitis Disposition: HOME / SELF CARE / HOMELESS Is pt being admited?: No Does the pt Need Aspirin: No Condition: Stable Instructions: Cellulitis, Adult, [id number], Folliculitis Additional Instructions: Take medication with food, drink plenty of fluids and follow-up with your [facility] in 7 to 10 days for reevaluation. Return to the ED immediately if symptoms get worse. Prescriptions: Sulfamethoxazole/Trimethoprim [Bactrim DS TAB] 1 each PO BID #20 tablet Mupirocin [Bactroban 2% OINT] 1 applic TP TID #1 tube Chlorhexidine Gluconate [Hibiclens] 10 ml TP BID #240 liquid Ibuprofen [Motrin 800 MG tab] 800 mg PO Q8HR PRN #20 tablet PRN Reason: pain Referrals: [facility] [Provider Group] - 7-10 days Time of Disposition: 01:03 Print Language: MACEDONIAN
[2022-02-18 02:06] VITALS: BP 133/71
== END 2022-02-18 02:07 | disposition home or self-care (01) ==
LOC: ED 19:01
DX: L03.114 Cellulitis of left upper limb (principal); L73.9 Follicular disorder, unspecified; F17.200 Nicotine dependence, unspecified, uncomplicated; Z79.899 Other long term (current) drug therapy
CPT/HCPCS: 99282